=== PATIENT | male | born 1955 | race Caucasian/White ===

== ENCOUNTER 2017-04-30 11:58 | Inpatient (IN) | payer OTHER ==
[2017-04-30] VITALS (22 sets, daily range): BP systolic 107–145; BP diastolic 60–87; PULSE 60–75; RESP 11–25; Ht 170.2 cm; Wt 87.2 kg
[~2017-04-30] VITALS: Ht 170.2 cm; Wt 87.2 kg
[2017-04-30] MEDS ORDERED: AMLO1CAP12 PO (13:07)
--- NOTE | 2017-04-30 14:53 | HPN ---
Date/Time of Note Date/Time of Note DATE: 04/30/17 TIME: 14:51 Interval H&P Admission Note Pt. seen H&P reviewed: No system changes Neurosurgery Preop Surgery Note Pt seen and examined Extensive d/w patient about all available options including surgery vs. no surgery . All questions answered and no guarantees given. Overall risk/complications 3-5% discussed. PCDF C3-7 Dispo: ICU post op BESSY ROLON MD Apr 30, 2017 14:53
[2017-04-30] MEDS ORDERED: GELATIN SIZE 100 SPONGE ONE (14:55)
[2017-04-30] MEDS ORDERED: THROMBIN 5000 UNIT VIAL ONE (14:55)
[2017-04-30] MEDS ORDERED: POLYMYXIN/BACITRACIN 1L IRRIG ONE (14:55)
[2017-04-30] MEDS ORDERED: MEPERIDINE 100 MG INJ ONE (14:58)
[2017-04-30] MEDS ORDERED: NEOSTIGMINE 3 MG/3 ML SYRINGE ONE ×2 (14:58→16:57)
[2017-04-30] MEDS ORDERED: PROPOFOL 20 ML ONE (14:58)
[2017-04-30] MEDS ORDERED: GLYCOPYRROLATE 1 MG INJ ONE ×3 (14:58→16:58)
[2017-04-30] MEDS ORDERED: LIDOCAINE 2% (SDV) 5 ML INJ ONE (14:58)
[2017-04-30] MEDS ORDERED: SUCCINYLCHOLINE CHLORIDE 100 MG/5 ML SYG IV ONE (14:58)
[2017-04-30] MEDS ORDERED: ROCURONIUM 50 MG INJ ONE ×2 (14:58→17:17)
[2017-04-30] MEDS ORDERED: POVIDONE IODINE 10% 28.4 GM OINT ONE (15:08)
[2017-04-30] MEDS ORDERED: DEXAMETHASONE 4 MG/ML 1 ML INJ ONE (15:59)
[2017-04-30] MEDS ORDERED: ONDANSETRON 4 MG INJ IV PRN ×2 (16:00→18:30)
[2017-04-30] MEDS ORDERED: HYDROCODONE/APAP (5/325) TAB PO PRN (16:00)
[2017-04-30] MEDS ORDERED: CEFAZOLIN 2 GM/50 ML (PMX) 100 ML IVPB SCH (16:00)
[2017-04-30] MEDS ORDERED: ACETAMINOPHEN 325 MG TAB PO PRN (16:00)
[2017-04-30] MEDS ORDERED: NALOXONE (0.4 MG/ML) INJ IV PRN (16:00)
[2017-04-30] MEDS ORDERED: NACL 0.9% 3 ML SYG IV SCH (16:00)
[2017-04-30] MEDS ORDERED: AL HYDROX/MG HYDROX/SIMETH 30 ML CUP PO PRN (16:00)
[2017-04-30] MEDS ORDERED: ATROPINE 1 MG/10 ML SYRINGE ONE (16:19)
[2017-04-30] MEDS ORDERED: CEFAZOLIN 1 GM INJ ONE (16:19)
[2017-04-30] MEDS ORDERED: EPHEDrine SULFATE 50 MG/5 ML SYG ONE (16:32)
[2017-04-30] MEDS ORDERED: LABETALOL HCL 20MG INJ ONE (16:33)
[2017-04-30] MEDS ORDERED: ROPIVACAINE 0.5 % 30 ML VIAL ONE (16:49)
[2017-04-30] MEDS ORDERED: FENTAnyl 50 MCG/ML VIAL ONE (17:59)
[2017-04-30] MEDS ORDERED: hydrALAzine 20 MG INJ ONE (18:02)
--- NOTE | 2017-04-30 18:04 | RADRPT ---
PROCEDURE: XR Cervical Spine. CLINICAL INDICATION: Neck pain. Intraoperative. TECHNIQUE: Single lateral view. COMPARISON: None. FINDINGS: Surgical instruments are noted overlying the cervical spine posteriorly. An endotracheal tube is in position. IMPRESSION: 1. Intraoperative imaging of the cervical spine. RPTAT: QQ .Dylon Roe MD, Date Time Electronically viewed and signed by .Dylon Roe MD, on 04/30/2017 18:04 .R/
[2017-04-30] MEDS ORDERED: EPHEDrine SULFATE 50 MG/5 ML SYG IV PRN (18:30)
[2017-04-30] MEDS ORDERED: MEPERIDINE 25 MG INJ IV PRN (18:30)
[2017-04-30] MEDS ORDERED: FENTAnyl 50 MCG/ML VIAL IV PRN ×2 (18:30)
[2017-04-30] MEDS ORDERED: OXYCODONE/ACETAMINOPHEN (5/325) TAB PO PRN ×2 (18:30)
[2017-04-30] MEDS ORDERED: hydrALAzine 20 MG INJ IV PRN (18:30)
[2017-04-30] MEDS ORDERED: METOCLOPRAMIDE 10 MG INJ IV PRN (18:30)
[2017-04-30] MEDS ORDERED: HYDROmorphONE (0.2 MG/ML) 10ML SYG IV PRN ×3 (18:30)
[2017-04-30] MEDS ORDERED: MIDAZOLAM 1 MG/ML 2 ML INJ IV PRN (18:30)
[2017-04-30] MEDS ORDERED: LABETALOL HCL 20MG INJ IV PRN (18:30)
[2017-04-30] MEDS ORDERED: DIPHENHYDRAMINE 50 MG INJ IV PRN (18:30)
--- NOTE | 2017-04-30 18:36 | OPPN ---
Date/Time of Note Date/Time of Note DATE: 04/30/17 TIME: 18:35 Operative Report Preoperative Diagnosis cervical myelopathy Postoperative Diagnosis same Operation/Procedure Performed PCDF C3-7 Surgeon see signature line student assistance counselor MORGAN Mendoza, ACNP-BC Anesthesia: general Estimated blood loss: 50 - 100 ml's Transfusion Required none Specimen bone and ligaments C3-7 Grafts/Implants none Complications none BESSY ROLON MD Apr 30, 2017 18:36
[2017-04-30] MEDS: FENTAnyl 50 MCG/ML VIAL IV PRN ×3 (19:02→19:50)
[2017-04-30] MEDS: HYDROmorphONE 0.2 MG/ML PCA IV SCH (19:13)
[2017-04-30] MEDS ORDERED: DEXAMETHASONE 10 MG/ML 1 ML INJ IV SCH (20:30)
[2017-04-30] MEDS: DOCUSATE SODIUM 100 MG CAP PO SCH (21:00)
[2017-04-30] MEDS: DEXAMETHASONE 4 MG/ML 1 ML INJ IV SCH (21:18)
[2017-05-01] VITALS (41 sets, daily range): BP systolic 116–172; BP diastolic 61–99; PULSE 66–110; RESP 12–30
[2017-05-01] MEDS: HYDROmorphONE 0.2 MG/ML PCA IV SCH ×3 (00:37→17:30)
[2017-05-01] MEDS: DEXAMETHASONE 4 MG/ML 1 ML INJ IV SCH ×5 (01:03→23:24)
[2017-05-01] MEDS: CEFAZOLIN 2 GM/50 ML (PMX) 50 ML IVPB SCH ×4 (01:09→23:24)
[2017-05-01 04:55] LABS: ABNORMAL IP MESSAGE 1; BASOPHILS % 0.2 % (0.0-2.0); HEMATOCRIT 43.8 % (42.0-52.0); HEMOGLOBIN 14.3 g/dl (14.0-18.0); LYMPHOCYTES # 0.7 10^3/ul (0.8-2.9); LYMPHOCYTES % 4.1 % (15.0-51.0); MEAN CORPUSCULAR HEMOGLOBIN 30.2 pg (29.0-33.0); MEAN CORPUSCULAR HGB CONC 32.6 g/dl (32.0-37.0); MEAN CORPUSCULAR VOLUME 92.4 fl (82.0-101.0); MEAN PLATELET VOLUME 14.1 fl (7.4-10.4); MONOCYTE # 0.2 10^3/ul (0.3-0.9); MONOCYTES % 1.3 % (0.0-11.0); NEUTROPHIL # 16.2 10^3/ul (1.6-7.5); NEUTROPHILS % 93.8 % (39.0-77.0); PLATELET COUNT 143 10^3/UL (140-415); POSITIVE DIFF @See below; RED BLOOD COUNT 4.74 10^6/ul (4.70-6.10); RED CELL DISTRIBUTION WIDTH 13.2 % (11.5-14.5); WHITE BLOOD COUNT 17.3 10^3/ul (4.8-10.8)
[2017-05-01 05:51] LABS: CALCIUM 9.3 mg/dl (8.4-10.2); CREATININE 0.93 mg/dl (0.61-1.24)
[2017-05-01] MEDS: DOCUSATE SODIUM 100 MG CAP PO SCH ×2 (08:04→20:44)
[2017-05-01 08:15] LABS: HEMATOCRIT 42.2 % (42.0-52.0); HEMOGLOBIN 14.4 g/dl (14.0-18.0)
[2017-05-01] MEDS: HYDROCODONE/APAP (5/325) TAB PO PRN ×3 (09:18→23:36)
[2017-05-01] MEDS: hydrALAzine 20 MG INJ IV PRN (11:25)
--- NOTE | 2017-05-01 16:48 | PN ---
Date/Time of Note Date/Time of Note DATE: 05/01/17 TIME: 16:45 Assessment/Plan VTE Prophylaxis VTE Prophylaxis Intervention: SCD's Lines/Catheters IV Catheter Type (from Nrsg): Saline Lock Urinary Cath still in place: Yes Reason Cath still needed: other (indicate) Assessment/Plan Chief Complaint/Hosp Course PT/ OT Problems: Subjective 24 Hr Interval Summary Free Text/Dictation without complaints except incisional pain Exam/Review of Systems Vital Signs Vitals Vital Signs Date Time Temp Pulse Resp B/P Pulse Ox O2 Delivery O2 Flow Rate FiO2 05/01/17 15:56 97 Nasal Cannula 3.0 05/01/17 15:49 18 05/01/17 15:15 69 05/01/17 14:00 134/87 05/01/17 08:00 97.4 Intake and Output 04/30/17 04/30/17 05/01/17 15:00 23:00 07:00 Intake Total 1800 ml 50 ml Output Total 790 ml 1065 ml Balance 1010 ml -1015 ml Exam Awake and alert, Ox3, conversant, Motor and sensory exams are unchanged Results Result Diagram: 05/01/17 0747 05/01/17 0400 Results 24 hrs Laboratory Tests Test 05/01/17 04:00 05/01/17 05:43 05/01/17 07:47 White Blood Count 17.3 H Red Blood Count 4.74 Hemoglobin 14.3 14.4 Hematocrit 43.8 42.2 Mean Corpuscular Volume 92.4 Mean Corpuscular Hemoglobin 30.2 Mean Corpuscular Hemoglobin Concent 32.6 Red Cell Distribution Width 13.2 Platelet Count 143 Mean Platelet Volume 14.1 H Neutrophils % 93.8 H Lymphocytes % 4.1 L Monocytes % 1.3 Eosinophils % 0.0 Basophils % 0.2 Nucleated Red Blood Cells % 0.0 Neutrophils # 16.2 H Lymphocytes # 0.7 L Monocytes # 0.2 L Eosinophils # 0.0 Basophils # 0.0 Nucleated Red Blood Cells # 0.0 Sodium Level 140 Potassium Level 4.0 Chloride Level 106 Carbon Dioxide Level 26 Anion Gap 12 Blood Urea Nitrogen 18 Creatinine 0.93 Glucose Level 154 Calcium Level 9.3 Lab Scanned Report REFERENCE LAB Medications Medications Current Medications Ondansetron HCl (Zofran Inj) 4 mg Q6H PRN IV NAUSEA AND/OR VOMITING; Start at 16:00 Al Hydrox/Mg Hydrox/Simethicone (Mag-Al Plus) 15 ml Q4H PRN PO CONSTIPATION; Start 04/30/17 at 16:00 Docusate Sodium (Colace) 100 mg BID PO Last administered on 05/01/17 08:04; Admin Dose 100 MG; Start 04/30/17 at 21:00 Acetaminophen (Tylenol Tab) 650 mg Q4H PRN PO TEMP GREATER THAN 101F OR NGUYEN; Start 04/30/17 at 16:00 Hydromorphone HCl (Dilaudid [employer]) Q4PCA IV Last administered on 05/01/17 09: 24; Admin Dose 6 MG; Start 04/30/17 at 16:00 Naloxone HCl (Narcan) 0.2 mg Q2M PRN IV RR 8 BREATHS/MIN OR LESS; Start at 16:00 Dexamethasone 6 mg 6 mg Q6 IV Last administered on 05/01/17 12:01; Admin Dose 6 MG; Start 04/30/17 at 20:40 Cefazolin Sodium/ Dextrose (Ancef 2 Gm/50 ml (Pmx)) 50 ml @ 100 mls/hr Q8H IVPB Last administered on 05/01/17 08:03; Admin Dose 100 MLS/HR; Start 05/01 at 00:00; Stop 05/02/17 at 00:29 Acetaminophen/ Hydrocodone Bitart ([place] (5/325)) 2 tab Q4H PRN PO PAIN Last administered on 05/01/17 13:40; Admin Dose 2 TAB; Start 05/01/17 at 07:30 Amlodipine Besylate (Norvasc) 1 mg QHS PO ; Start 05/01/17 at 21:00 Hydralazine HCl (Apresoline) 10 mg Q4H PRN IV SBP>150& DBP >95 Last administered on 05/01/17 11:25; Admin Dose 10 MG; Start 05/01/17 at 11:00 Benazepril HCl (Lotensin) 20 mg HS PO ; Start 05/01/17 at 21:00 BESSY ROLON MD May 01, 2017 16:48
[2017-05-01] MEDS: BENAZEPRIL 20 MG TAB PO SCH (20:42)
[2017-05-01] MEDS ORDERED: AMLODIPINE 10 MG TAB PO SCH (21:00)
[2017-05-02] VITALS (13 sets, daily range): BP systolic 128–145; BP diastolic 66–82; PULSE 60–76; RESP 16–19
[2017-05-02] MEDS: HYDROmorphONE 0.2 MG/ML PCA IV SCH ×3 (01:26→16:03)
--- NOTE | 2017-05-02 02:03 | HP ---
DATE OF ADMISSION: 04/30/2017 CHIEF COMPLAINT AND HISTORY OF PRESENT ILLNESS: The patient is a 61-year-old gentleman with histor y of coronary artery disease, status post CABG, hypertension, history of dyslipidemia, although he i s not on any medication, a chronic smoker and still continues to smoke, was seen by Dr. Graf as an outpatient and was diagnosed with cervical myelopathy. The patient was seen by Dr. Arndt and got cardiology clearance. EF is 65%. Carotid ultrasound negative for any obstruction. The patient und erwent a posterior cervical laminectomy and foraminotomy, cervical 3 to cervical 7 with instrumentat ion. The patient postoperatively was transferred to ICU. The patient denies any chest pain. No re ported shortness of breath. No reported resting leg pain. No reported nausea or vomiting. No repo rted headache. The patient does not have any abdominal pain. Patient does have . REVIEW OF SYSTEMS: The rest of review of systems is unremarkable. PAST SURGICAL HISTORY: The patient is status post CABG, status post cholecystectomy, status post moffett rgery for prostate cancer. ALLERGIES: NONE. SOCIAL HISTORY: The patient smokes 1 pack per day, has been smoking for several decades. FAMILY HISTORY: Both parents have heart disease, details not available. MEDICATIONS: Lotrel. The patient apparently quit taking aspirin 6 months ago and was told by [facility] physician that he does not need any treatment for dyslipidemia. The patient has been advise d to follow up with PMD as an outpatient for those issues. PHYSICAL EXAMINATION: GENERAL: The patient is conscious, awake, alert. VITAL SIGNS: Temperature 97.4, pulse 69, respirations 15, blood pressure 158/99, O2 saturation 98% on nasal cannula. HEENT: Conjunctivae and lids normal. Oropharynx clear. NECK: No obvious mass, no JVD. CHEST: Fairly clear. CARDIOVASCULAR: S1, S2 normal. No murmur. ABDOMEN: Soft, nondistended, nontender. Bowel sounds plus. EXTREMITIES: No leg edema. NEUROLOGIC: The patient is awake, alert, fairly oriented with no gross focal deficit. LABORATORY DATA: Sodium 140, potassium 4, BUN 18, creatinine 0.9, glucose 154. WBC 17.3, hemoglobi n 14.4. IMPRESSION: 1. Cervical myelopathy status post posterior cervical laminectomy and foraminotomy, C3-C7. 2. Coronary artery disease, status post CABG. 3. Hypertension. 4. History of dyslipidemia. 5. Prostate cancer status post surgery. 6. Tobacco abuse. PLAN: The patient is currently in the ICU. Art line in place. The patient's home medications will be resumed. The patient will be continued on perioperative IV antibiotic as per protocol. 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 I will add IV hydralazine on a p.r.n. basis for hypertension in addition to a scheduled dose of Lotrel. Plan of care discussed with the patient's . Further recommendations will depend on hospital course and recommendations from Dr. Graf. Dictated By: DIVYA FOX/MARCK Conf#: [id number] DID#: [id number]
[2017-05-02] MEDS: HYDROCODONE/APAP (5/325) TAB PO PRN ×4 (03:24→17:09)
[2017-05-02] MEDS: DEXAMETHASONE 4 MG/ML 1 ML INJ IV SCH ×3 (06:41→17:09)
[2017-05-02] MEDS: DOCUSATE SODIUM 100 MG CAP PO SCH ×2 (08:43→21:29)
--- NOTE | 2017-05-02 08:45 | RADRPT ---
PROCEDURE: CT Cervical Spine without contrast. CLINICAL INDICATION: Status post surgical fusion TECHNIQUE: A CT of the cervical spine was performed on a CT scanner utilizing thin section axial images from the skull base through the thoracic inlet. Sagittal and coronal reformatted images were made. The CTDIvol is 22.4 mGy and the DLP is 657.74 mGycm. One or more of the following dose reduc tion techniques were utilized: Automated exposure control, adjustment of the mA and/or kV according to patient size, use of iterative reconstruction technique. COMPARISON: 04/30 20:17 cervical spine x-ray FINDINGS: Decompression laminectomies and bilateral lateral mass fixation screws and posterior fusion rods fro m C3-C7. A surgical drain is noted in place within the posterior resection cavity. Subcutaneous gas is noted within the soft tissues of the posterior neck asymmetric to the right with midline incision and suture sharif along the posterior midline neck soft tissues. There is no evidence of hardware failure. Vertebral bodies are normal in height, density, and alignment. No fracture is evident. C2-3: The disc is normal in height. There is no central canal stenosis or foraminal narrowing. C3-4: The disc is normal in height. mild broad-based central disc protrusion measuring 3 mm in AP di mension. Decompression laminectomy. C4-5: Mild disc space narrowing and broad-based central disc protrusion measuring 3 mm in AP dimensi on. Marked right hypertrophic facet joint arthropathy and mild left facet joint arthropathy. Moderat e right foraminal stenosis and mild left foraminal stenosis. Decompression laminectomy. C5-6: Mild disc space narrowing and posterior spondylitic ridging. Severe right and moderate to xin re left facet joint arthropathy. Moderate to severe right and mild left foraminal stenosis. Decompre ssion laminectomy. C6-7: Mild disc space narrowing moderate to severe bilateral facet joint arthropathy . Moderate jt ateral foraminal stenosis. Decompression laminectomy. C7-T1: Normal disc height. Moderate to severe left and moderate right facet joint arthropathy. The l ateral mass screw project 1mm into posterior the neural foramina on the right without significant fo raminal stenosis. Severe left foraminal stenosis. Decompression laminectomy The prevertebral soft tissues are unremarkable. The lung apices are clear. Sternotomy wires noted in place. IMPRESSION: 1. Posterior lumbar fusion from C3-C7 with decompression laminectomies . 2. No evidence of hardware failure. Postsurgical drain within the post surgical laminectomy bed fro m C3-C7. 3. Multilevel facet joint arthropathy and enthesopathy resulting in varying degrees of foraminal st enosis as detailed above. 3. Postsurgical changes of the posterior neck soft tissues. RPTAT: HH Physician Agapito Date Time Electronically viewed and signed by Physician Agapito on 05/02/2017 08:45 SUNIL/
[2017-05-02] MEDS: BENAZEPRIL 20 MG TAB PO SCH ×2 (21:00→21:30)
[2017-05-02] MEDS: AMLODIPINE 10 MG TAB PO SCH (21:41)
[2017-05-03] VITALS (12 sets, daily range): BP systolic 132–148; BP diastolic 73–78; PULSE 63–70; RESP 16–19
[2017-05-03] MEDS: HYDROmorphONE 0.2 MG/ML PCA IV SCH ×3 (01:35→17:38)
[2017-05-03] MEDS: DEXAMETHASONE 4 MG/ML 1 ML INJ IV SCH ×3 (01:36→12:35)
[2017-05-03] MEDS: HYDROCODONE/APAP (5/325) TAB PO PRN (04:08)
[2017-05-03] MEDS: DOCUSATE SODIUM 100 MG CAP PO SCH ×2 (08:26→20:23)
--- NOTE | 2017-05-03 14:10 | PN ---
Date/Time of Note Date/Time of Note DATE: 05/03/17 TIME: 14:05 Assessment/Plan VTE Prophylaxis VTE Prophylaxis Intervention: ambulation, SCD's Lines/Catheters IV Catheter Type (from Nrsg): Saline Lock Central line still needed: No Urinary Cath still in place: No Assessment/Plan Assessment/Plan s/p PCDF C3-7. POD #1 doing well with pt/ot increasing strength to bilat UE Surgical site CDI Plan DC bon drain dc f/c pt/ot with collar dc planning home in am if stable overnight . Okay with NS follow up in 2 weeks DC skin sharif in at 2 week follow up okay to shower in 1-2 days Prescriptions written and left in chart Subjective 24 Hr Interval Summary Subjective hx not possible: other (s: s/p PCDF C3-7. doing well with pt/ot ) Exam/Review of Systems Vital Signs Vitals Vital Signs Date Time Temp Pulse Resp B/P Pulse Ox O2 Delivery O2 Flow Rate FiO2 05/03/17 13:01 70 05/03/17 12:03 16 05/03/17 11:18 97.7 132/77 96 05/03/17 08:26 Nasal Cannula 3.0 05/02/17 22:18 28 Intake and Output 05/02/17 05/02/17 05/03/17 15:00 23:00 07:00 Intake Total 1500 ml 1200 ml Output Total 10 ml 1020 ml 2400 ml Balance -10 ml 480 ml -1200 ml Exam Neurological: other (MS: AAOX4 CN: PERRL M: FC x 4 , 5/5 strength ) Results Result Diagram: 05/01/17 0747 05/01/17 0400 Medications Medications Current Medications Ondansetron HCl (Zofran Inj) 4 mg Q6H PRN IV NAUSEA AND/OR VOMITING; Start at 16:00 Al Hydrox/Mg Hydrox/Simethicone (Mag-Al Plus) 15 ml Q4H PRN PO CONSTIPATION; Start 04/30/17 at 16:00 Docusate Sodium (Colace) 100 mg BID PO Last administered on 05/03/17t 08:26; Admin Dose 100 MG; Start 04/30/17 at 21:00 Acetaminophen (Tylenol Tab) 650 mg Q4H PRN PO TEMP GREATER THAN 101F OR NGUYEN; Start 04/30/17 at 16:00 Hydromorphone HCl (Dilaudid WOOD CRAFTER) Q4PCA IV Last administered on 05/03/17 07: 34; Admin Dose 6 MG; Start 04/30/17 at 16:00 Naloxone HCl (Narcan) 0.2 mg Q2M PRN IV RR 8 BREATHS/MIN OR LESS; Start at 16:00 Dexamethasone (Decadron) 6 mg Q6 IV Last administered on 05/03/17 12:35; Admin Dose 6 MG; Start 04/30/17 at 20:40 Acetaminophen/ Hydrocodone Bitart ([place] (5/325)) 2 tab Q4H PRN PO PAIN Last administered on 05/03/17 04:08; Admin Dose 2 TAB; Start 05/01/17 at 07:30 Hydralazine HCl (Apresoline) 10 mg Q4H PRN IV SBP>150& DBP >95 Last administered on 05/01/17 11:25; Admin Dose 10 MG; Start 05/01/17 at 11:00 Amlodipine Besylate (Norvasc) 10 mg QHS PO Last administered on 05/02/17 21: 41; Admin Dose 10 MG; Start 05/02/17 at 21:00 Benazepril HCl (Lotensin) 20 mg HS PO ; Start 05/02/17 at 21:00 NURA AVALOS NP May 03, 2017 14:10
[2017-05-03] MEDS ORDERED: DEXAMETHASONE 4 MG TAB PO SCH (14:30)
--- NOTE | 2017-05-03 15:18 | PN ---
Date/Time of Note Date/Time of Note DATE: 05/03/17 TIME: 15:15 Assessment/Plan VTE Prophylaxis VTE Prophylaxis Intervention: SCD's Lines/Catheters IV Catheter Type (from Nrs): Saline Lock Urinary Cath still in place: No Assessment/Plan Chief Complaint/Hosp Course Patient seen in the a.m. sitting in the chair using Dilaudid CLIENT RESOURCE SPECIALIST successfully states that pain is well controlled controlled denies any nausea vomiting denies shortness of breath denies chest pain. Problems: Assessment/Plan 1. Cervical myelopathy status post posterior cervical laminectomy and foraminotomy, C3-C7. Follow up surgical recommendation. Continue Decadron. Dilaudid CLIENT RESOURCE SPECIALIST for pain and Zofran as needed for nausea. 2. Coronary artery disease, status post CABG. 3. Hypertension. Continue benazepril and Norvasc 4. History of dyslipidemia. 5. Prostate cancer status post surgery. 6. Tobacco abuse. Further recommendations based on clinical course. Plan of care discussed with Dr. Michelle. Exam/Review of Systems Vital Signs Vitals Vital Signs Date Time Temp Pulse Resp B/P Pulse Ox O2 Delivery O2 Flow Rate FiO2 05/03/17 14:44 2.0 05/03/17 13:01 70 05/03/17 12:03 16 05/03/17 11:18 97.7 132/77 96 05/03/17 08:26 Nasal Cannula 05/02/17 22:18 28 Intake and Output 05/02/17 05/02/17 05/03/17 15:00 23:00 07:00 Intake Total 1500 ml 1200 ml Output Total 10 ml 1020 ml 2400 ml Balance -10 ml 480 ml -1200 ml Exam Constitutional: alert, oriented Head: normocephalic Neck: other (Status post surgery, cervical collar) Respiratory: normal air movement Cardiovascular: nl pulses Gastrointestinal: non-tender, soft Extremities: normal pulses Neurological: FUNERAL DIRECTOR/EMBALMER II-XII intact Results Result Diagram: 05/01/17 9964 05/01/17 0400 Medications Medications Current Medications Ondansetron HCl (Zofran Inj) 4 mg Q6H PRN IV NAUSEA AND/OR VOMITING; Start at 16:00 Al Hydrox/Mg Hydrox/Simethicone (Mag-Al Plus) 15 ml Q4H PRN PO CONSTIPATION; Start 10/20/17 at 16:00 Docusate Sodium (Colace) 100 mg BID PO Last administered on 05/03/17 08:26; Admin Dose 100 MG; Start 04/30/17 at 21:00 Acetaminophen (Tylenol Tab) 650 mg Q4H PRN PO TEMP GREATER THAN 101F OR NGUYEN; Start 04/30/17 at 16:00 Hydromorphone HCl (Dilaudid CLIENT RESOURCE SPECIALIST) Q4PCA IV Last administered on 05/03/17 07: 34; Admin Dose 6 MG; Start 04/30/17 at 16:00 Naloxone HCl (Narcan) 0.2 mg Q2M PRN IV RR 8 BREATHS/MIN OR LESS; Start at 16:00 Acetaminophen/ Hydrocodone Bitart ([place] (5/325)) 2 tab Q4H PRN PO PAIN Last administered on 05/03/17 04:08; Admin Dose 2 TAB; Start 05/01/17 at 07:30 Hydralazine HCl (Apresoline) 10 mg Q4H PRN IV SBP>150& DBP >95 Last administered on 05/01/17 11:25; Admin Dose 10 MG; Start 05/01/17 at 11:00 Amlodipine Besylate (Norvasc) 10 mg QHS PO Last administered on 05/02/17 21: 41; Admin Dose 10 MG; Start 05/02/17 at 21:00 Benazepril HCl (Lotensin) 20 mg HS PO ; Start 05/02/17 at 21:00 Dexamethasone (Decadron) 4 mg BID PO ; Start 05/03/17 at 21:00 GILBERTO TURPIN May 03, 2017 15:18
[2017-05-03] MEDS: DEXAMETHASONE 4 MG TAB PO SCH (20:23)
[2017-05-03] MEDS: BENAZEPRIL 20 MG TAB PO SCH (20:24)
[2017-05-03] MEDS: AMLODIPINE 10 MG TAB PO SCH (20:24)
[2017-05-03] MEDS ORDERED: AMLODIPINE 10 MG TAB PO SCH (21:00)
[2017-05-04] VITALS (8 sets, daily range): BP systolic 134–163; BP diastolic 78–88; PULSE 63–67; RESP 18
[2017-05-04] MEDS: hydrALAzine 20 MG INJ IV PRN (06:14)
[2017-05-04 07:32] LABS: WHITE BLOOD COUNT 23.6 10^3/ul (4.8-10.8)
[2017-05-04 07:33] LABS: ABNORMAL IP MESSAGE 1; BASOPHILS % 0.1 % (0.0-2.0); HEMATOCRIT 42.2 % (42.0-52.0); HEMOGLOBIN 13.6 g/dl (14.0-18.0); LYMPHOCYTES # 1.4 10^3/ul (0.8-2.9); LYMPHOCYTES % 5.7 % (15.0-51.0); MEAN CORPUSCULAR HEMOGLOBIN 30.3 pg (29.0-33.0); MEAN CORPUSCULAR HGB CONC 32.2 g/dl (32.0-37.0); MONOCYTE # 1.3 10^3/ul (0.3-0.9); MONOCYTES % 5.4 % (0.0-11.0); NEUTROPHIL # 20.6 10^3/ul (1.6-7.5); NEUTROPHILS % 87.4 % (39.0-77.0); PLATELET COUNT 166 10^3/UL (140-415); POSITIVE DIFF @See below; RED BLOOD COUNT 4.49 10^6/ul (4.70-6.10); RED CELL DISTRIBUTION WIDTH 13.3 % (11.5-14.5)
[2017-05-04 07:49] LABS: CALCIUM 9.6 mg/dl (8.4-10.2); CREATININE 0.82 mg/dl (0.61-1.24); POTASSIUM 4.2 mmol/L (3.5-5.1)
[2017-05-04] MEDS: DOCUSATE SODIUM 100 MG CAP PO SCH (08:53)
[2017-05-04] MEDS: DEXAMETHASONE 4 MG TAB PO SCH (08:53)
[2017-05-04] MEDS: HYDROCODONE/APAP (5/325) TAB PO PRN (13:01)
[2017-05-04] MEDS ORDERED: DOCU-216 PO (14:14)
[2017-05-04] MEDS ORDERED: HYDR-902 PO (14:14)
[2017-05-04] MEDS ORDERED: PENDING SANTYL ORDER FOR WOUND CARE XX PRN (15:00)
== END 2017-05-04 15:40 | disposition home or self-care (01) | DRG 472 ==
LOC: REC 12:49 → ICU 23:16 → TEL 05-01 14:49
PROVIDERS: ADMIT Internal Medicine; ATTEND Neurological Surgery
PROC: 0RG2071 Fusion of 2 or more Cervical Vertebral Joints with Autologous Tissue Substitute, Posterior Approach, Posterior Column, Open Approach (ICD-10-PCS; principal; 2017-04-30 15:00)
DX: M48.02 Spinal stenosis, cervical region (principal); G95.89 Other specified diseases of spinal cord; I10 Essential (primary) hypertension; I25.10 Atherosclerotic heart disease of native coronary artery without angina pectoris; E78.5 Hyperlipidemia, unspecified; F17.200 Nicotine dependence, unspecified, uncomplicated; E66.9 Obesity, unspecified; Z68.30 Body mass index [BMI] 30.0-30.9, adult; Z85.46 Personal history of malignant neoplasm of prostate; Z95.1 Presence of aortocoronary bypass graft
CPT/HCPCS: 72020; 72125; 80048; 85014; 85018; 85025; 86850; 86900; 86901; 87081; 87086; 88304; 88311; 97110; 97116; 97164; 97530; J0360; J0461; J0690; J1100; J1170; J1644; J2175; J2250; J2405; J2710; J2795; J3010